=== PATIENT | female | born 1940 | race Caucasian/White ===

== ENCOUNTER 2018-05-28 16:47 | Outpatient (CLI) | payer MEDICARE, SELFPAY ==
[2018-05-28 17:02] LABS: Abs Immature Grans 0.07 k/cumm (0.0-0.09); Absolute Basophil Count 0.13 k/cumm (0.0-0.2); Absolute Eosinophil Count 0.19 k/cumm (0.0-0.7); Absolute Lymphocyte Count 1.87 k/cumm (1.2-3.4); Absolute Monocyte Count 0.93 k/cumm (0.11-0.7); Absolute Neutrophil Count 4.65 k/cumm (1.2-6.7); Basophils % 1.7; Eosinophils % 2.4; HCT 44.5 % (36.0-46.0); HGB 15.1 g/dL (12.0-15.5); Immature Grans % 0.9; Lymphocytes % 23.9; Mean Corp. HGB Concentration 33.9 g/dL (32.0-36.0); Mean Corpuscular Hemoglobin 29.5 pg (27.0-33.0); Mean Corpuscular Volume 86.9 fL (80-95); Mean Platelet Volume 8.3 fL (8.0-11.0); Monocytes % 11.9; Neutrophils % 59.2; Platelet Count 323 x1000/uL (130-400); RBC 5.12 m/cumm (4.00-5.20); RBC Distribution Width 13.2 % (11.7-14.6); White Blood Cell Count 7.84 k/cumm (4.4-10.8)
[2018-05-28 17:15] LABS: ALT 12 U/L (12-78); AST 21 U/L (15-37); Albumin 3.6 g/dL (3.4-5.0); Alkaline Phosphatase 80 U/L (46-116); Anion Gap 7.6 mmol/L (3-11); BUN 12 mg/dL (7-18); Bilirubin, Total 0.4 mg/dL (0.2-1.0); CO2 30.4 mmol/L (21.0-32.0); CREATININE 0.76 mg/dL (0.55-1.02); Calcium 9.2 mg/dL (8.5-10.1); Chloride 94 mmol/L (98-107); Glucose 93 mg/dL (70-100); Potassium 4.1 mmol/L (3.5-5.1); Sodium 132 mmol/L (136-145); Total Protein 7.7 g/dL (6.4-8.2)
[2018-05-29 11:45] LABS: CA 125 72 U/mL (0-30)
== END 2018-05-28 16:48 ==
PROVIDERS: PCP Internal Medicine; Visit Provider Internal Medicine
DX: C56.9 Malignant neoplasm of unspecified ovary (principal)
CPT/HCPCS: 36415; 80053; 86304; 85025

== ENCOUNTER 2018-06-09 02:46 | Outpatient (RCR) | payer MEDICARE, SELFPAY | END 2018-06-12 02:46 | LOC: INF 02:46 | PROVIDERS: PCP Internal Medicine; Visit Provider Internal Medicine | DX: R69 Illness, unspecified (principal) ==

== ENCOUNTER 2018-07-07 01:39 | Outpatient (RCR) | payer MEDICARE, SELFPAY ==
[2018-06-16] MEDS: Normal Saline Flush 10 ML SYR IVP (08:10)
[2018-06-16 09:08] LABS: Abs Immature Grans 0.01 k/cumm (0.0-0.09); Absolute Basophil Count 0.04 k/cumm (0.0-0.2); Absolute Eosinophil Count 0.06 k/cumm (0.0-0.7); Absolute Lymphocyte Count 1.02 k/cumm (1.2-3.4); Absolute Neutrophil Count 3.02 k/cumm (1.2-6.7); Basophils % 0.9; Eosinophils % 1.3; HGB 12.6 g/dL (12.0-15.5); Immature Grans % 0.2; Lymphocytes % 22.9; Mean Corp. HGB Concentration 34.1 g/dL (32.0-36.0); Mean Corpuscular Hemoglobin 29.7 pg (27.0-33.0); Mean Corpuscular Volume 87.3 fL (80-95); Mean Platelet Volume 9.3 fL (8.0-11.0); Monocytes % 6.7; Platelet Count 254 x1000/uL (130-400); RBC 4.24 m/cumm (4.00-5.20); RBC Distribution Width 12.3 % (11.7-14.6); White Blood Cell Count 4.45 k/cumm (4.4-10.8)
[2018-06-16 09:21] LABS: ALT 22 U/L (12-78); AST 22 U/L (15-37); Albumin 2.9 g/dL (3.4-5.0); Alkaline Phosphatase 57 U/L (46-116); BUN 12 mg/dL (7-18); Bilirubin, Total 0.6 mg/dL (0.2-1.0); CO2 32.4 mmol/L (21.0-32.0); CREATININE 0.53 mg/dL (0.55-1.02); Calcium 8.4 mg/dL (8.5-10.1); Chloride 92 mmol/L (98-107); Glucose 94 mg/dL (70-100); Potassium 3.9 mmol/L (3.5-5.1); Total Protein 6.3 g/dL (6.4-8.2)
[2018-06-16 09:22] LABS: Anion Gap 0.6 mmol/L (3-11); Sodium 125 mmol/L (136-145)
[2018-06-17 12:16] LABS: CA 125 57 U/mL (0-30)
[2018-06-23] MEDS: Normal Saline Flush 10 ML SYR IVP (08:25)
[2018-06-23 08:42] LABS: Abs Immature Grans 0.07 k/cumm (0.0-0.09); HCT 35.1 % (36.0-46.0); HGB 11.9 g/dL (12.0-15.5); Mean Corp. HGB Concentration 33.9 g/dL (32.0-36.0); Mean Corpuscular Hemoglobin 29.8 pg (27.0-33.0); Mean Corpuscular Volume 87.8 fL (80-95); Platelet Count 295 x1000/uL (130-400); RBC Distribution Width 12.2 % (11.7-14.6); White Blood Cell Count 5.52 k/cumm (4.4-10.8)
[2018-06-23 08:58] LABS: ALT 15 U/L (12-78); AST 17 U/L (15-37); Albumin 2.9 g/dL (3.4-5.0); Alkaline Phosphatase 62 U/L (46-116); Anion Gap 4.8 mmol/L (3-11); BUN 10 mg/dL (7-18); Bilirubin, Total 0.3 mg/dL (0.2-1.0); CO2 31.2 mmol/L (21.0-32.0); CREATININE 0.57 mg/dL (0.55-1.02); Calcium 8.5 mg/dL (8.5-10.1); Chloride 94 mmol/L (98-107); Glucose 98 mg/dL (70-100); Sodium 130 mmol/L (136-145); Total Protein 6.7 g/dL (6.4-8.2)
[2018-06-23 08:59] LABS: Absolute Monocyte Count 0.83 k/cumm (0.11-0.7); Absolute Neutrophil Count 3.09 k/cumm (1.2-6.7); Atypical Lymphocytes % 7; Diff Comment Manual Differential
[2018-07-07] MEDS: Normal Saline Flush 10 ML SYR IVP (09:25)
[2018-07-07 09:49] LABS: Abs Immature Grans 0.61 k/cumm (0.0-0.09); HCT 38.2 % (36.0-46.0); HGB 12.5 g/dL (12.0-15.5); Mean Corp. HGB Concentration 32.7 g/dL (32.0-36.0); Mean Corpuscular Hemoglobin 29.6 pg (27.0-33.0); Mean Corpuscular Volume 90.3 fL (80-95); Mean Platelet Volume 8.5 fL (8.0-11.0); Platelet Count 385 x1000/uL (130-400); RBC 4.23 m/cumm (4.00-5.20); RBC Distribution Width 14.6 % (11.7-14.6); White Blood Cell Count 9.96 k/cumm (4.4-10.8)
[2018-07-07 10:01] LABS: ALT 14 U/L (12-78); AST 16 U/L (15-37); Albumin 3.1 g/dL (3.4-5.0); Alkaline Phosphatase 99 U/L (46-116); Anion Gap 4.5 mmol/L (3-11); BUN 8 mg/dL (7-18); Bilirubin, Total 0.3 mg/dL (0.2-1.0); CO2 32.5 mmol/L (21.0-32.0); CREATININE 0.52 mg/dL (0.55-1.02); Calcium 8.8 mg/dL (8.5-10.1); Chloride 96 mmol/L (98-107); Glucose 98 mg/dL (70-100); Potassium 4.4 mmol/L (3.5-5.1); Sodium 133 mmol/L (136-145); Total Protein 6.7 g/dL (6.4-8.2)
[2018-07-07 10:13] LABS: Absolute Lymphocyte Count 1.29 k/cumm (1.2-3.4); Absolute Neutrophil Count 6.97 k/cumm (1.2-6.7); Diff Comment Manual Differential; RBC Morphology Normal
[2018-07-08 12:51] LABS: CA 125 56 U/mL (0-30)
== END 2018-07-12 23:59 | disposition home or self-care (01) ==
LOC: INF 01:39
PROVIDERS: PCP Internal Medicine; Visit Provider Internal Medicine
DX: C56.9 Malignant neoplasm of unspecified ovary (principal); Z45.2 Encounter for adjustment and management of vascular access device
CPT/HCPCS: 36591; 80053; 86304; 85025

== ENCOUNTER 2018-08-11 01:07 | Outpatient (RCR) | payer MEDICARE, SELFPAY ==
[2018-07-14] MEDS: Normal Saline Flush 10 ML SYR IVP (09:55)
[2018-07-14 10:23] LABS: Abs Immature Grans 0.01 k/cumm (0.0-0.09); Absolute Basophil Count 0.05 k/cumm (0.0-0.2); Absolute Eosinophil Count 0.03 k/cumm (0.0-0.7); Absolute Monocyte Count 0.42 k/cumm (0.11-0.7); Absolute Neutrophil Count 2.52 k/cumm (1.2-6.7); Basophils % 1.2; Eosinophils % 0.7; HCT 35.1 % (36.0-46.0); HGB 11.6 g/dL (12.0-15.5); Immature Grans % 0.2; Lymphocytes % 24.9; Mean Corpuscular Hemoglobin 29.7 pg (27.0-33.0); Mean Platelet Volume 8.8 fL (8.0-11.0); Monocytes % 10.4; Neutrophils % 62.6; Platelet Count 412 x1000/uL (130-400); RBC Distribution Width 13.9 % (11.7-14.6); White Blood Cell Count 4.02 k/cumm (4.4-10.8)
[2018-07-14 10:32] LABS: ALT 18 U/L (12-78); AST 19 U/L (15-37); Alkaline Phosphatase 86 U/L (46-116); Anion Gap 0.3 mmol/L (3-11); BUN 13 mg/dL (7-18); Bilirubin, Total 0.5 mg/dL (0.2-1.0); CO2 33.7 mmol/L (21.0-32.0); CREATININE 0.47 mg/dL (0.55-1.02); Calcium 8.9 mg/dL (8.5-10.1); Chloride 94 mmol/L (98-107); Glucose 95 mg/dL (70-100); Potassium 4.3 mmol/L (3.5-5.1); Sodium 128 mmol/L (136-145); Total Protein 6.6 g/dL (6.4-8.2)
[2018-07-21] MEDS: Normal Saline Flush 10 ML SYR IVP (12:35)
[2018-07-21 12:43] LABS: Abs Immature Grans 0.04 k/cumm (0.0-0.09); Absolute Basophil Count 0.07 k/cumm (0.0-0.2); Absolute Eosinophil Count 0.06 k/cumm (0.0-0.7); Absolute Lymphocyte Count 1.43 k/cumm (1.2-3.4); Absolute Monocyte Count 0.71 k/cumm (0.11-0.7); Absolute Neutrophil Count 1.49 k/cumm (1.2-6.7); Basophils % 1.8; Eosinophils % 1.6; HGB 11.1 g/dL (12.0-15.5); Immature Grans % 1.1; Lymphocytes % 37.6; Mean Corp. HGB Concentration 33.6 g/dL (32.0-36.0); Mean Corpuscular Hemoglobin 30.5 pg (27.0-33.0); Mean Corpuscular Volume 90.7 fL (80-95); Mean Platelet Volume 8.2 fL (8.0-11.0); Monocytes % 18.7; Neutrophils % 39.2; Platelet Count 305 x1000/uL (130-400); RBC 3.64 m/cumm (4.00-5.20); RBC Distribution Width 14.2 % (11.7-14.6)
[2018-07-21 12:53] LABS: Diff Comment Diff Reviewed; RBC Morphology Normal
[2018-07-21 13:01] LABS: ALT 20 U/L (12-78); AST 21 U/L (15-37); Albumin 3.1 g/dL (3.4-5.0); Alkaline Phosphatase 74 U/L (46-116); Anion Gap 7.7 mmol/L (3-11); BUN 6 mg/dL (7-18); Bilirubin, Total 0.3 mg/dL (0.2-1.0); CO2 31.3 mmol/L (21.0-32.0); Calcium 8.7 mg/dL (8.5-10.1); Chloride 94 mmol/L (98-107); Glucose 127 mg/dL (70-100); Potassium 3.5 mmol/L (3.5-5.1); Sodium 133 mmol/L (136-145); Total Protein 6.6 g/dL (6.4-8.2)
[2018-07-22 11:27] LABS: CA 125 36 U/mL (0-30)
[2018-08-04] MEDS: Normal Saline Flush 10 ML SYR IVP (09:25)
[2018-08-04 09:51] LABS: Abs Immature Grans 0.19 k/cumm (0.0-0.09); HCT 36.6 % (36.0-46.0); Mean Corp. HGB Concentration 32.8 g/dL (32.0-36.0); Mean Corpuscular Hemoglobin 30.4 pg (27.0-33.0); Mean Corpuscular Volume 92.7 fL (80-95); Mean Platelet Volume 8.5 fL (8.0-11.0); Platelet Count 335 x1000/uL (130-400); RBC 3.95 m/cumm (4.00-5.20); RBC Distribution Width 16.3 % (11.7-14.6); White Blood Cell Count 8.84 k/cumm (4.4-10.8)
[2018-08-04 10:01] LABS: ALT 14 U/L (12-78); AST 16 U/L (15-37); Alkaline Phosphatase 98 U/L (46-116); Anion Gap 6.4 mmol/L (3-11); BUN 9 mg/dL (7-18); Bilirubin, Total 0.5 mg/dL (0.2-1.0); CO2 30.6 mmol/L (21.0-32.0); CREATININE 0.63 mg/dL (0.55-1.02); Calcium 8.9 mg/dL (8.5-10.1); Chloride 93 mmol/L (98-107); Glucose 112 mg/dL (70-100); Potassium 4.4 mmol/L (3.5-5.1); Sodium 130 mmol/L (136-145); Total Protein 6.8 g/dL (6.4-8.2)
[2018-08-04 10:22] LABS: Absolute Eosinophil Count 0.09 k/cumm (0.0-0.7); Absolute Lymphocyte Count 1.15 k/cumm (1.2-3.4); Absolute Monocyte Count 0.88 k/cumm (0.11-0.7); Absolute Neutrophil Count 6.45 k/cumm (1.2-6.7)
[2018-08-04 10:23] LABS: Diff Comment Manual Differential; RBC Morphology Normal
[2018-08-05 13:25] LABS: CA 125 36 U/mL (0-30)
[2018-08-11] MEDS: Normal Saline Flush 10 ML SYR IVP (12:25)
[2018-08-11 13:01] LABS: Abs Immature Grans 0.02 k/cumm (0.0-0.09); Absolute Basophil Count 0.04 k/cumm (0.0-0.2); Absolute Eosinophil Count 0.04 k/cumm (0.0-0.7); Absolute Lymphocyte Count 0.73 k/cumm (1.2-3.4); Absolute Monocyte Count 0.28 k/cumm (0.11-0.7); Absolute Neutrophil Count 3.15 k/cumm (1.2-6.7); Basophils % 0.9; Eosinophils % 0.9; HCT 33.6 % (36.0-46.0); HGB 11.1 g/dL (12.0-15.5); Immature Grans % 0.5; Lymphocytes % 17.1; Mean Corpuscular Hemoglobin 30.5 pg (27.0-33.0); Mean Corpuscular Volume 92.3 fL (80-95); Mean Platelet Volume 8.6 fL (8.0-11.0); Monocytes % 6.6; Platelet Count 446 x1000/uL (130-400); RBC 3.64 m/cumm (4.00-5.20); RBC Distribution Width 15.1 % (11.7-14.6); White Blood Cell Count 4.26 k/cumm (4.4-10.8)
[2018-08-11 13:17] LABS: ALT 18 U/L (12-78); AST 20 U/L (15-37); Albumin 3.2 g/dL (3.4-5.0); Alkaline Phosphatase 77 U/L (46-116); Anion Gap 4.3 mmol/L (3-11); BUN 12 mg/dL (7-18); Bilirubin, Total 0.8 mg/dL (0.2-1.0); CO2 32.7 mmol/L (21.0-32.0); CREATININE 0.54 mg/dL (0.55-1.02); Calcium 8.9 mg/dL (8.5-10.1); Chloride 91 mmol/L (98-107); Glucose 107 mg/dL (70-100); Potassium 4.2 mmol/L (3.5-5.1); Sodium 128 mmol/L (136-145); Total Protein 6.8 g/dL (6.4-8.2)
[2018-08-12 11:35] LABS: CA 125 35 U/mL (0-30)
== END 2018-08-12 23:59 | disposition home or self-care (01) ==
LOC: INF 01:07
PROVIDERS: PCP Internal Medicine; Visit Provider Internal Medicine
DX: C56.9 Malignant neoplasm of unspecified ovary (principal); Z45.2 Encounter for adjustment and management of vascular access device
CPT/HCPCS: 36591; 80053; 86304; 85025

== ENCOUNTER 2018-09-08 01:30 | Outpatient (RCR) | payer MEDICARE, SELFPAY ==
[2018-08-19] MEDS: Normal Saline Flush 10 ML SYR IVP (09:50)
[2018-08-19 10:21] LABS: HCT 33.4 % (36.0-46.0); HGB 11.1 g/dL (12.0-15.5); Mean Corp. HGB Concentration 33.2 g/dL (32.0-36.0); Mean Corpuscular Hemoglobin 31.2 pg (27.0-33.0); Mean Corpuscular Volume 93.8 fL (80-95); Mean Platelet Volume 8.2 fL (8.0-11.0); Platelet Count 349 x1000/uL (130-400); RBC 3.56 m/cumm (4.00-5.20); RBC Distribution Width 16.1 % (11.7-14.6); White Blood Cell Count 3.22 k/cumm (4.4-10.8)
[2018-08-19 10:26] LABS: ALT 15 U/L (12-78); AST 16 U/L (15-37); Albumin 3.2 g/dL (3.4-5.0); Alkaline Phosphatase 76 U/L (46-116); Anion Gap 6.4 mmol/L (3-11); BUN 7 mg/dL (7-18); Bilirubin, Total 0.3 mg/dL (0.2-1.0); CO2 30.6 mmol/L (21.0-32.0); CREATININE 0.54 mg/dL (0.55-1.02); Calcium 8.6 mg/dL (8.5-10.1); Chloride 95 mmol/L (98-107); Glucose 107 mg/dL (70-100); Potassium 4.1 mmol/L (3.5-5.1); Sodium 132 mmol/L (136-145); Total Protein 6.5 g/dL (6.4-8.2)
[2018-08-19 10:48] LABS: Absolute Lymphocyte Count 1.13 k/cumm (1.2-3.4); Absolute Monocyte Count 0.68 k/cumm (0.11-0.7); Absolute Neutrophil Count 1.32 k/cumm (1.2-6.7); RBC Morphology Normal
[2018-08-19 10:49] LABS: Diff Comment Manual Differential
[2018-08-20 11:49] LABS: CA 125 27 U/mL (0-30)
[2018-09-01 10:45] LABS: HCT 35.7 % (36.0-46.0); HGB 11.7 g/dL (12.0-15.5); Mean Corp. HGB Concentration 32.8 g/dL (32.0-36.0); Mean Corpuscular Hemoglobin 31.3 pg (27.0-33.0); Mean Corpuscular Volume 95.5 fL (80-95); Mean Platelet Volume 8.5 fL (8.0-11.0); Platelet Count 340 x1000/uL (130-400); RBC 3.74 m/cumm (4.00-5.20); RBC Distribution Width 17.1 % (11.7-14.6); White Blood Cell Count 9.87 k/cumm (4.4-10.8)
[2018-09-01 10:59] LABS: ALT 32 U/L (12-78); AST 42 U/L (15-37); Albumin 3.3 g/dL (3.4-5.0); Alkaline Phosphatase 91 U/L (46-116); Anion Gap 8.4 mmol/L (3-11); BUN 8 mg/dL (7-18); Bilirubin, Total 0.4 mg/dL (0.2-1.0); CO2 27.6 mmol/L (21.0-32.0); CREATININE 0.44 mg/dL (0.55-1.02); Calcium 8.9 mg/dL (8.5-10.1); Chloride 95 mmol/L (98-107); Glucose 111 mg/dL (70-100); Sodium 131 mmol/L (136-145); Total Protein 6.8 g/dL (6.4-8.2)
[2018-09-01 11:11] LABS: Absolute Lymphocyte Count 1.28 k/cumm (1.2-3.4); Absolute Monocyte Count 1.09 k/cumm (0.11-0.7); Absolute Neutrophil Count 7.21 k/cumm (1.2-6.7); RBC Morphology Normal
[2018-09-01 11:12] LABS: Diff Comment Manual Differential
[2018-09-02 10:17] LABS: CA 125 24 U/mL (0-30)
[2018-09-08] MEDS: Normal Saline Flush 10 ML SYR IVP (08:45)
[2018-09-08 09:10] LABS: Abs Immature Grans 0.01 k/cumm (0.0-0.09); Absolute Basophil Count 0.05 k/cumm (0.0-0.2); Absolute Eosinophil Count 0.07 k/cumm (0.0-0.7); Absolute Lymphocyte Count 0.92 k/cumm (1.2-3.4); Absolute Monocyte Count 0.29 k/cumm (0.11-0.7); Eosinophils % 2.9; HCT 30.7 % (36.0-46.0); HGB 10.2 g/dL (12.0-15.5); Immature Grans % 0.4; Lymphocytes % 37.7; Mean Corp. HGB Concentration 33.2 g/dL (32.0-36.0); Mean Corpuscular Hemoglobin 32.1 pg (27.0-33.0); Mean Corpuscular Volume 96.5 fL (80-95); Mean Platelet Volume 8.6 fL (8.0-11.0); Monocytes % 11.9; Neutrophils % 45.1; Platelet Count 436 x1000/uL (130-400); RBC 3.18 m/cumm (4.00-5.20); RBC Distribution Width 15.4 % (11.7-14.6); White Blood Cell Count 2.44 k/cumm (4.4-10.8)
[2018-09-08 09:23] LABS: Diff Comment Diff Reviewed
[2018-09-08 09:24] LABS: RBC Morphology Normal
[2018-09-08 09:25] LABS: ALT 86 U/L (12-78); AST 58 U/L (15-37); Alkaline Phosphatase 56 U/L (46-116); Anion Gap 4.9 mmol/L (3-11); BUN 12 mg/dL (7-18); Bilirubin, Total 0.6 mg/dL (0.2-1.0); CO2 32.1 mmol/L (21.0-32.0); CREATININE 0.56 mg/dL (0.55-1.02); Calcium 8.6 mg/dL (8.5-10.1); Chloride 92 mmol/L (98-107); Glucose 95 mg/dL (70-100); Potassium 4.3 mmol/L (3.5-5.1); Sodium 129 mmol/L (136-145); Total Protein 6.3 g/dL (6.4-8.2)
[2018-09-09 12:09] LABS: CA 125 21 U/mL (0-30)
== END 2018-09-11 23:59 | disposition home or self-care (01) ==
LOC: INF 01:30
PROVIDERS: PCP Internal Medicine; Visit Provider Internal Medicine
DX: C56.9 Malignant neoplasm of unspecified ovary (principal); Z45.2 Encounter for adjustment and management of vascular access device
CPT/HCPCS: 36415; 36591; 80053; 86304; 85025

== ENCOUNTER 2018-10-07 00:35 | Outpatient (RCR) | payer MEDICARE, SELFPAY ==
[2018-09-16] MEDS: Normal Saline Flush 10 ML SYR IVP (08:52)
[2018-09-16 09:00] LABS: Abs Immature Grans 0.02 k/cumm (0.0-0.09); Absolute Basophil Count 0.06 k/cumm (0.0-0.2); Absolute Eosinophil Count 0.06 k/cumm (0.0-0.7); Absolute Lymphocyte Count 0.89 k/cumm (1.2-3.4); Absolute Monocyte Count 1.13 k/cumm (0.11-0.7); Absolute Neutrophil Count 1.22 k/cumm (1.2-6.7); Basophils % 1.8; Eosinophils % 1.8; HCT 34.1 % (36.0-46.0); HGB 11.2 g/dL (12.0-15.5); Immature Grans % 0.6; Lymphocytes % 26.3; Mean Corp. HGB Concentration 32.8 g/dL (32.0-36.0); Mean Corpuscular Hemoglobin 32.1 pg (27.0-33.0); Mean Corpuscular Volume 97.7 fL (80-95); Mean Platelet Volume 8.1 fL (8.0-11.0); Monocytes % 33.4; Neutrophils % 36.1; Platelet Count 250 x1000/uL (130-400); RBC 3.49 m/cumm (4.00-5.20); RBC Distribution Width 15.6 % (11.7-14.6); White Blood Cell Count 3.38 k/cumm (4.4-10.8)
[2018-09-16 09:10] LABS: ALT 36 U/L (12-78); AST 22 U/L (15-37); Albumin 3.4 g/dL (3.4-5.0); Alkaline Phosphatase 57 U/L (46-116); Anion Gap 5.4 mmol/L (3-11); BUN 10 mg/dL (7-18); Bilirubin, Total 0.4 mg/dL (0.2-1.0); CO2 30.6 mmol/L (21.0-32.0); CREATININE 0.57 mg/dL (0.55-1.02); Calcium 8.8 mg/dL (8.5-10.1); Chloride 93 mmol/L (98-107); Glucose 97 mg/dL (70-100); Potassium 4.5 mmol/L (3.5-5.1); Sodium 129 mmol/L (136-145); Total Protein 6.5 g/dL (6.4-8.2)
[2018-09-16 09:25] LABS: Diff Comment Diff Reviewed
[2018-09-17 09:49] LABS: CA 125 20 U/mL (0-30)
[2018-09-29] MEDS: Normal Saline Flush 10 ML SYR IVP (08:45)
[2018-09-29 09:09] LABS: HCT 37.5 % (36.0-46.0); HGB 12.3 g/dL (12.0-15.5); Mean Corp. HGB Concentration 32.8 g/dL (32.0-36.0); Mean Corpuscular Hemoglobin 32.1 pg (27.0-33.0); Mean Corpuscular Volume 97.9 fL (80-95); Mean Platelet Volume 8.3 fL (8.0-11.0); Platelet Count 359 x1000/uL (130-400); RBC 3.83 m/cumm (4.00-5.20); RBC Distribution Width 15.3 % (11.7-14.6); White Blood Cell Count 11.78 k/cumm (4.4-10.8)
[2018-09-29 09:29] LABS: ALT 26 U/L (12-78); AST 21 U/L (15-37); Albumin 3.3 g/dL (3.4-5.0); Alkaline Phosphatase 84 U/L (46-116); Anion Gap 5.9 mmol/L (3-11); BUN 8 mg/dL (7-18); Bilirubin, Total 0.3 mg/dL (0.2-1.0); CO2 32.1 mmol/L (21.0-32.0); CREATININE 0.54 mg/dL (0.55-1.02); Calcium 9.2 mg/dL (8.5-10.1); Chloride 92 mmol/L (98-107); Glucose 98 mg/dL (70-100); Potassium 4.5 mmol/L (3.5-5.1); Sodium 130 mmol/L (136-145)
[2018-09-29 09:35] LABS: Absolute Lymphocyte Count 1.18 k/cumm (1.2-3.4); Absolute Monocyte Count 1.18 k/cumm (0.11-0.7); Absolute Neutrophil Count 9.07 k/cumm (1.2-6.7); Anisocytosis 1+; Diff Comment Manual Differential; Hypochromasia 1+; Macrocytosis 1+
[2018-09-29 09:36] LABS: Polychromasia Present; Stomatocytes 2+
[2018-09-30 11:58] LABS: CA 125 18 U/mL (0-30)
[2018-10-07] MEDS: Normal Saline Flush 10 ML SYR IVP (08:46)
[2018-10-07 08:50] LABS: Abs Immature Grans 0.01 k/cumm (0.0-0.09); Absolute Basophil Count 0.07 k/cumm (0.0-0.2); Absolute Eosinophil Count 0.06 k/cumm (0.0-0.7); Absolute Lymphocyte Count 0.92 k/cumm (1.2-3.4); Absolute Monocyte Count 0.53 k/cumm (0.11-0.7); Absolute Neutrophil Count 1.12 k/cumm (1.2-6.7); Basophils % 2.6; Eosinophils % 2.2; HCT 33.5 % (36.0-46.0); HGB 11.2 g/dL (12.0-15.5); Immature Grans % 0.4; Lymphocytes % 33.9; Mean Corp. HGB Concentration 33.4 g/dL (32.0-36.0); Mean Corpuscular Hemoglobin 32.7 pg (27.0-33.0); Mean Corpuscular Volume 97.7 fL (80-95); Mean Platelet Volume 8.2 fL (8.0-11.0); Monocytes % 19.6; Neutrophils % 41.3; Platelet Count 411 x1000/uL (130-400); RBC 3.43 m/cumm (4.00-5.20); RBC Distribution Width 13.9 % (11.7-14.6); White Blood Cell Count 2.71 k/cumm (4.4-10.8)
[2018-10-07 09:06] LABS: Diff Comment Diff Reviewed; RBC Morphology Normal
[2018-10-07 09:15] LABS: ALT 22 U/L (12-78); AST 20 U/L (15-37); Albumin 3.1 g/dL (3.4-5.0); Alkaline Phosphatase 70 U/L (46-116); Anion Gap 3.9 mmol/L (3-11); BUN 11 mg/dL (7-18); Bilirubin, Total 0.3 mg/dL (0.2-1.0); CO2 33.1 mmol/L (21.0-32.0); CREATININE 0.57 mg/dL (0.55-1.02); Calcium 8.9 mg/dL (8.5-10.1); Chloride 91 mmol/L (98-107); Glucose 97 mg/dL (70-100); Sodium 128 mmol/L (136-145); Total Protein 6.6 g/dL (6.4-8.2)
[2018-10-08 09:54] LABS: CA 125 13 U/mL (0-30)
== END 2018-10-12 23:59 | disposition home or self-care (01) ==
LOC: INF 00:35
PROVIDERS: PCP Internal Medicine; Visit Provider Internal Medicine
DX: C56.9 Malignant neoplasm of unspecified ovary (principal); Z45.2 Encounter for adjustment and management of vascular access device
CPT/HCPCS: 36591; 80053; 86304; 85025

== ENCOUNTER 2018-11-10 01:28 | Outpatient (RCR) | payer MEDICARE, SELFPAY ==
[2018-10-14] MEDS: Normal Saline Flush 10 ML SYR IVP (09:28)
[2018-10-14 09:44] LABS: Abs Immature Grans 0.02 k/cumm (0.0-0.09); Absolute Basophil Count 0.02 k/cumm (0.0-0.2); Absolute Eosinophil Count 0.05 k/cumm (0.0-0.7); Absolute Lymphocyte Count 1.21 k/cumm (1.2-3.4); Absolute Monocyte Count 0.77 k/cumm (0.11-0.7); Basophils % 0.6; Eosinophils % 1.5; HCT 32.5 % (36.0-46.0); HGB 10.9 g/dL (12.0-15.5); Immature Grans % 0.6; Lymphocytes % 35.9; Mean Corp. HGB Concentration 33.5 g/dL (32.0-36.0); Mean Corpuscular Hemoglobin 32.3 pg (27.0-33.0); Mean Corpuscular Volume 96.4 fL (80-95); Mean Platelet Volume 8.4 fL (8.0-11.0); Monocytes % 22.8; Neutrophils % 38.6; Platelet Count 244 x1000/uL (130-400); RBC 3.37 m/cumm (4.00-5.20); RBC Distribution Width 13.8 % (11.7-14.6); White Blood Cell Count 3.37 k/cumm (4.4-10.8)
[2018-10-14 09:56] LABS: ALT 16 U/L (12-78); AST 17 U/L (15-37); Albumin 3.2 g/dL (3.4-5.0); Alkaline Phosphatase 75 U/L (46-116); Anion Gap 3.7 mmol/L (3-11); BUN 7 mg/dL (7-18); Bilirubin, Total 0.3 mg/dL (0.2-1.0); CO2 32.3 mmol/L (21.0-32.0); CREATININE 0.59 mg/dL (0.55-1.02); Calcium 8.8 mg/dL (8.5-10.1); Chloride 93 mmol/L (98-107); Glucose 105 mg/dL (70-100); Potassium 4.2 mmol/L (3.5-5.1); Sodium 129 mmol/L (136-145); Total Protein 6.4 g/dL (6.4-8.2)
[2018-10-14 09:58] LABS: Diff Comment Diff Reviewed; Polychromasia Present
[2018-10-14 09:59] LABS: Poikilocytes 1+
[2018-10-15 12:46] LABS: CA 125 15 U/mL (0-30)
[2018-10-27] MEDS: Normal Saline Flush 10 ML SYR IVP (08:55)
[2018-10-27 09:23] LABS: Abs Immature Grans 0.12 k/cumm (0.0-0.09); Absolute Basophil Count 0.06 k/cumm (0.0-0.2); Absolute Eosinophil Count 0.11 k/cumm (0.0-0.7); Absolute Lymphocyte Count 1.14 k/cumm (1.2-3.4); Absolute Neutrophil Count 5.37 k/cumm (1.2-6.7); Basophils % 0.8; Eosinophils % 1.4; HCT 34.9 % (36.0-46.0); HGB 11.7 g/dL (12.0-15.5); Immature Grans % 1.6; Mean Corp. HGB Concentration 33.5 g/dL (32.0-36.0); Mean Corpuscular Hemoglobin 32.6 pg (27.0-33.0); Mean Corpuscular Volume 97.2 fL (80-95); Mean Platelet Volume 8.2 fL (8.0-11.0); Monocytes % 10.5; Neutrophils % 70.7; Platelet Count 361 x1000/uL (130-400); RBC 3.59 m/cumm (4.00-5.20); RBC Distribution Width 14.9 % (11.7-14.6)
[2018-10-27 09:40] LABS: ALT 13 U/L (12-78); AST 16 U/L (15-37); Albumin 3.3 g/dL (3.4-5.0); Alkaline Phosphatase 124 U/L (46-116); Anion Gap 4.6 mmol/L (3-11); BUN 9 mg/dL (7-18); Bilirubin, Total 0.3 mg/dL (0.2-1.0); CO2 32.4 mmol/L (21.0-32.0); CREATININE 0.59 mg/dL (0.55-1.02); Calcium 8.9 mg/dL (8.5-10.1); Chloride 94 mmol/L (98-107); Glucose 97 mg/dL (70-100); Potassium 4.5 mmol/L (3.5-5.1); Sodium 131 mmol/L (136-145); Total Protein 6.7 g/dL (6.4-8.2)
[2018-10-28 16:12] LABS: CA 125 15 U/mL (0-30)
[2018-11-03] MEDS: Normal Saline Flush 10 ML SYR IVP (09:30)
[2018-11-03 09:57] LABS: Abs Immature Grans 0.01 k/cumm (0.0-0.09); Absolute Basophil Count 0.04 k/cumm (0.0-0.2); Absolute Eosinophil Count 0.05 k/cumm (0.0-0.7); Absolute Lymphocyte Count 0.96 k/cumm (1.2-3.4); Absolute Monocyte Count 0.29 k/cumm (0.11-0.7); Absolute Neutrophil Count 1.75 k/cumm (1.2-6.7); Basophils % 1.3; Eosinophils % 1.6; HCT 34.1 % (36.0-46.0); HGB 11.2 g/dL (12.0-15.5); Immature Grans % 0.3; Mean Corp. HGB Concentration 32.8 g/dL (32.0-36.0); Mean Corpuscular Hemoglobin 31.5 pg (27.0-33.0); Mean Corpuscular Volume 96.1 fL (80-95); Mean Platelet Volume 8.6 fL (8.0-11.0); Monocytes % 9.4; Neutrophils % 56.4; Platelet Count 397 x1000/uL (130-400); RBC 3.55 m/cumm (4.00-5.20); RBC Distribution Width 14.5 % (11.7-14.6)
[2018-11-03 10:11] LABS: ALT 17 U/L (12-78); AST 19 U/L (15-37); Albumin 3.4 g/dL (3.4-5.0); Alkaline Phosphatase 96 U/L (46-116); Anion Gap 4.5 mmol/L (3-11); BUN 13 mg/dL (7-18); Bilirubin, Total 0.4 mg/dL (0.2-1.0); CO2 32.5 mmol/L (21.0-32.0); CREATININE 0.57 mg/dL (0.55-1.02); Calcium 9.2 mg/dL (8.5-10.1); Chloride 94 mmol/L (98-107); Glucose 101 mg/dL (70-100); Potassium 4.6 mmol/L (3.5-5.1); Sodium 131 mmol/L (136-145); Total Protein 6.6 g/dL (6.4-8.2)
[2018-11-04 11:46] LABS: CA 125 12 U/mL (0-30)
[2018-11-10 09:00] LABS: Abs Immature Grans 0.02 k/cumm (0.0-0.09); Absolute Basophil Count 0.03 k/cumm (0.0-0.2); Absolute Eosinophil Count 0.04 k/cumm (0.0-0.7); Absolute Monocyte Count 0.67 k/cumm (0.11-0.7); Absolute Neutrophil Count 1.09 k/cumm (1.2-6.7); Eosinophils % 1.3; HCT 31.6 % (36.0-46.0); HGB 10.7 g/dL (12.0-15.5); Immature Grans % 0.7; Lymphocytes % 39.3; Mean Corp. HGB Concentration 33.9 g/dL (32.0-36.0); Mean Corpuscular Hemoglobin 32.5 pg (27.0-33.0); Mean Platelet Volume 8.4 fL (8.0-11.0); Neutrophils % 35.7; RBC 3.29 m/cumm (4.00-5.20); RBC Distribution Width 14.3 % (11.7-14.6); White Blood Cell Count 3.05 k/cumm (4.4-10.8)
[2018-11-10 09:12] LABS: ALT 14 U/L (12-78); AST 17 U/L (15-37); Albumin 3.3 g/dL (3.4-5.0); Alkaline Phosphatase 88 U/L (46-116); BUN 12 mg/dL (7-18); Bilirubin, Total 0.3 mg/dL (0.2-1.0); CREATININE 0.56 mg/dL (0.55-1.02); Chloride 94 mmol/L (98-107); Glucose 98 mg/dL (70-100); Potassium 4.5 mmol/L (3.5-5.1); Sodium 132 mmol/L (136-145); Total Protein 6.5 g/dL (6.4-8.2)
[2018-11-10 09:22] LABS: Diff Comment Agrees w/ Instrument; Platelet Count 273 x1000/uL (130-400); RBC Morphology Normal
[2018-11-10] MEDS: Normal Saline Flush 10 ML SYR IVP (09:40)
[2018-11-11 12:57] LABS: CA 125 14 U/mL (0-30)
== END 2018-11-12 23:59 | disposition home or self-care (01) ==
LOC: INF 01:28
PROVIDERS: PCP Internal Medicine; Visit Provider Internal Medicine
DX: C56.9 Malignant neoplasm of unspecified ovary (principal); Z45.2 Encounter for adjustment and management of vascular access device
CPT/HCPCS: 36591; 80053; 86304; 85025

== ENCOUNTER 2018-12-29 01:47 | Outpatient (RCR) | payer MEDICARE, SELFPAY ==
[2018-12-29] MEDS: Normal Saline Flush 10 ML SYR IVP (09:05)
[2018-12-29 09:36] LABS: Abs Immature Grans 0.05 k/cumm (0.0-0.09); Absolute Basophil Count 0.11 k/cumm (0.0-0.2); Absolute Eosinophil Count 0.29 k/cumm (0.0-0.7); Absolute Lymphocyte Count 1.21 k/cumm (1.2-3.4); Absolute Monocyte Count 0.91 k/cumm (0.11-0.7); Absolute Neutrophil Count 3.62 k/cumm (1.2-6.7); Basophils % 1.8; Eosinophils % 4.7; HCT 37.3 % (36.0-46.0); HGB 12.5 g/dL (12.0-15.5); Immature Grans % 0.8; Lymphocytes % 19.5; Mean Corp. HGB Concentration 33.5 g/dL (32.0-36.0); Mean Corpuscular Volume 92.6 fL (80-95); Mean Platelet Volume 8.5 fL (8.0-11.0); Monocytes % 14.7; Neutrophils % 58.5; Platelet Count 389 x1000/uL (130-400); RBC 4.03 m/cumm (4.00-5.20); RBC Distribution Width 13.8 % (11.7-14.6); White Blood Cell Count 6.19 k/cumm (4.4-10.8)
[2018-12-29 09:47] LABS: ALT 12 U/L (12-78); AST 18 U/L (15-37); Albumin 3.4 g/dL (3.4-5.0); Alkaline Phosphatase 60 U/L (46-116); Anion Gap 7.4 mmol/L (3-11); BUN 12 mg/dL (7-18); Bilirubin, Total 0.5 mg/dL (0.2-1.0); CO2 29.6 mmol/L (21.0-32.0); CREATININE 0.65 mg/dL (0.55-1.02); Calcium 9.3 mg/dL (8.5-10.1); Chloride 93 mmol/L (98-107); Glucose 102 mg/dL (70-100); Potassium 4.4 mmol/L (3.5-5.1); Sodium 130 mmol/L (136-145)
[2018-12-30 11:34] LABS: CA 125 12 U/mL (0-30)
== END 2019-01-10 23:59 | disposition home or self-care (01) ==
LOC: INF 01:47
PROVIDERS: PCP Internal Medicine; Visit Provider Internal Medicine
DX: C56.9 Malignant neoplasm of unspecified ovary (principal); Z45.2 Encounter for adjustment and management of vascular access device
CPT/HCPCS: 36591; 80053; 86304; 85025

== ENCOUNTER 2019-04-27 02:22 | Outpatient (RCR) | payer MEDICARE, SELFPAY ==
[2019-04-27] MEDS: Normal Saline Flush 10 ML SYR IVP (11:19)
[2019-04-27 11:22] LABS: Abs Immature Grans 0.03 k/cumm (0.0-0.09); Absolute Basophil Count 0.09 k/cumm (0.0-0.2); Absolute Lymphocyte Count 1.43 k/cumm (1.2-3.4); Absolute Monocyte Count 0.81 k/cumm (0.11-0.7); Absolute Neutrophil Count 3.19 k/cumm (1.2-6.7); Basophils % 1.6; Eosinophils % 3.5; HCT 39.8 % (36.0-46.0); HGB 13.4 g/dL (12.0-15.5); Immature Grans % 0.5; Lymphocytes % 24.9; Mean Corp. HGB Concentration 33.7 g/dL (32.0-36.0); Mean Corpuscular Hemoglobin 28.6 pg (27.0-33.0); Mean Corpuscular Volume 84.9 fL (80-95); Mean Platelet Volume 8.5 fL (8.0-11.0); Monocytes % 14.1; Neutrophils % 55.4; Platelet Count 308 x1000/uL (130-400); RBC 4.69 m/cumm (4.00-5.20); RBC Distribution Width 13.7 % (11.7-14.6); White Blood Cell Count 5.75 k/cumm (4.4-10.8)
[2019-04-27 11:40] LABS: ALT 15 U/L (12-78); AST 17 U/L (15-37); Albumin 3.7 g/dL (3.4-5.0); Alkaline Phosphatase 73 U/L (46-116); Anion Gap 7.2 mmol/L (3-11); BUN 19 mg/dL (7-18); Bilirubin, Total 0.5 mg/dL (0.2-1.0); CO2 29.8 mmol/L (21.0-32.0); CREATININE 0.57 mg/dL (0.55-1.02); Calcium 9.1 mg/dL (8.5-10.1); Chloride 91 mmol/L (98-107); Glucose 97 mg/dL (70-100); Potassium 4.4 mmol/L (3.5-5.1); Sodium 128 mmol/L (136-145); Total Protein 7.2 g/dL (6.4-8.2)
[2019-04-28 11:00] LABS: CA 125 24 U/mL (0-30)
== END 2019-05-12 23:59 | disposition home or self-care (01) ==
LOC: INF 02:22
PROVIDERS: Nurse Practitioner Family; PCP Internal Medicine; Visit Provider Internal Medicine
DX: C48.1 Malignant neoplasm of specified parts of peritoneum (principal); Z45.2 Encounter for adjustment and management of vascular access device
CPT/HCPCS: 36591; 80053; 86304; 85025

== ENCOUNTER 2019-08-10 02:23 | Outpatient (RCR) | payer MEDICARE, SELFPAY ==
[2019-08-10] MEDS: Heparin 500 UNITS/5 ML SYRINGE (09:32)
[2019-08-10] MEDS: Normal Saline Flush 10 ML SYR 30 ML IVP (09:32)
[2019-08-10 09:54] LABS: Abs Immature Grans 0.06 k/cumm (0.0-0.09); Absolute Basophil Count 0.07 k/cumm (0.0-0.2); Absolute Eosinophil Count 0.14 k/cumm (0.0-0.7); Absolute Monocyte Count 1.38 k/cumm (0.11-0.7); Absolute Neutrophil Count 7.74 k/cumm (1.2-6.7); Basophils % 0.7; Eosinophils % 1.3; HCT 42.2 % (36.0-46.0); HGB 14.2 g/dL (12.0-15.5); Immature Grans % 0.6; Lymphocytes % 10.5; Mean Corp. HGB Concentration 33.6 g/dL (32.0-36.0); Mean Corpuscular Hemoglobin 28.7 pg (27.0-33.0); Mean Corpuscular Volume 85.3 fL (80-95); Mean Platelet Volume 8.3 fL (8.0-11.0); Monocytes % 13.2; Neutrophils % 73.7; Platelet Count 374 x1000/uL (130-400); RBC 4.95 m/cumm (4.00-5.20); RBC Distribution Width 12.7 % (11.7-14.6); White Blood Cell Count 10.49 k/cumm (4.4-10.8)
[2019-08-10 09:56] LABS: ALT 15 U/L (14-59); AST 20 U/L (15-37); Albumin 3.5 g/dL (3.4-5.0); Alkaline Phosphatase 76 U/L (46-116); Anion Gap 6.1 mmol/L (3-11); BUN 10 mg/dL (7-18); Bilirubin, Total 0.5 mg/dL (0.2-1.0); CO2 30.9 mmol/L (21.0-32.0); CREATININE 0.74 mg/dL (0.55-1.02); Calcium 9.3 mg/dL (8.5-10.1); Chloride 89 mmol/L (98-107); Glucose 101 mg/dL (70-100); Potassium 4.5 mmol/L (3.5-5.1); Sodium 126 mmol/L (136-145); Total Protein 7.7 g/dL (6.4-8.2)
[2019-08-11 14:08] LABS: CA 125 143 U/mL (0-30)
== END 2019-08-12 23:59 | disposition home or self-care (01) ==
LOC: INF 02:23
PROVIDERS: PCP Internal Medicine
DX: C48.1 Malignant neoplasm of specified parts of peritoneum (principal); Z45.2 Encounter for adjustment and management of vascular access device
CPT/HCPCS: 36591; 80053; 86304; 85025

== ENCOUNTER 2019-11-02 01:18 | Outpatient (RCR) | payer MEDICARE, SELFPAY ==
[2019-11-02 10:10] LABS: Abs Immature Grans 0.03 k/cumm (0.0-0.09); Absolute Basophil Count 0.08 k/cumm (0.0-0.2); Absolute Eosinophil Count 0.16 k/cumm (0.0-0.7); Absolute Lymphocyte Count 1.29 k/cumm (1.2-3.4); Absolute Monocyte Count 0.77 k/cumm (0.11-0.7); Absolute Neutrophil Count 4.24 k/cumm (1.2-6.7); Basophils % 1.2; Eosinophils % 2.4; HCT 40.6 % (36.0-46.0); HGB 13.5 g/dL (12.0-15.5); Immature Grans % 0.5 %; Lymphocytes % 19.6; Mean Corp. HGB Concentration 33.3 g/dL (32.0-36.0); Mean Corpuscular Hemoglobin 28.9 pg (27.0-33.0); Mean Corpuscular Volume 86.9 fL (80-95); Mean Platelet Volume 8.3 fL (8.0-11.0); Monocytes % 11.7; Neutrophils % 64.6; Platelet Count 369 x1000/uL (130-400); RBC 4.67 m/cumm (4.00-5.20); RBC Distribution Width 13.4 % (11.7-14.6); White Blood Cell Count 6.57 k/cumm (4.4-10.8)
[2019-11-02] MEDS: Heparin 500 UNITS/5 ML SYRINGE IVP (10:18)
[2019-11-02] MEDS: Normal Saline Flush 10 ML SYR IVP (10:18)
[2019-11-02 10:25] LABS: ALT 10 U/L (14-59); AST 20 U/L (15-37); Albumin 3.6 g/dL (3.4-5.0); Alkaline Phosphatase 70 U/L (46-116); BUN 12 mg/dL (7-18); Bilirubin, Total 0.5 mg/dL (0.2-1.0); CREATININE 0.52 mg/dL (0.55-1.02); Calcium 9.2 mg/dL (8.5-10.1); Chloride 93 mmol/L (98-107); Glucose 99 mg/dL (74-106); Potassium 4.5 mmol/L (3.5-5.1); Sodium 129 mmol/L (136-145); Total Protein 7.3 g/dL (6.4-8.2)
== END 2019-11-12 23:59 | disposition home or self-care (01) ==
LOC: INF 01:18
PROVIDERS: PCP Internal Medicine; Visit Provider Internal Medicine Hematology & Oncology
DX: C56.9 Malignant neoplasm of unspecified ovary (principal); Z45.2 Encounter for adjustment and management of vascular access device
CPT/HCPCS: 36591; 80053; 85025